=== PATIENT | female | born 1975 | race Caucasian/White ===

== ENCOUNTER 2018-07-11 10:59 | Emergency (ER) | payer BC ==
[2018-07-11 11:09] VITALS: BP 114/58; PULSE 68; TEMP 98.5; BMI 18.6
--- NOTE | 2018-07-11 11:32 | PDOC ---
History of Present Illness - General Chief Complaint: Headache Stated Complaint: HEAD INJURY Time Seen by Provider: 07/11/18 11:15 History Source: Patient Exam Limitations: No Limitations Past History - Past Medical History COPD: No - Suicide/Smoking/Psychosocial Hx Smoking History: Never smoked Hx Alcohol Use: No Drug/Substance Use Hx: No *Physical Exam - Vital Signs Last Vital Signs Temp Pulse Resp BP Pulse Ox 98.5 F 68 20 114/58 L 99 07/11/18 11:06 07/11/18 11:06 07/11/18 11:06 07/11/18 11:06 07/11/18 11:06 - Physical Exam General Appearance: No: Apparent Distress HEENT: positive: TOMAS, Other (No evidence of head trauma) Neck: positive: Supple, Tender midline. negative: Rigid, Rigidity, Tender lateral Respiratory/Chest: positive: Lungs Clear, Normal Breath Sounds. negative: Respiratory Distress Cardiovascular: positive: Regular Rhythm, Regular Rate, S1, S2. negative: Murmur Gastrointestinal/Abdominal: positive: Normal Bowel Sounds, Soft. 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 negative: Facial Droop, Confused, Disoriented Moderate Sedation - Procedure Monitoring Vital Signs: Procedure Monitoring Vital Signs Temperature 98.5 F 07/11/18 11:06 Pulse Rate 68 07/11/18 11:06 Respiratory Rate 20 07/11/18 11:06 Blood Pressure 114/58 L 07/11/18 11:06 O2 Sat by Pulse Oximetry (%) 99 07/11/18 11:06 Medical Decision Making - Medical Decision Making 42 y/o F with no sig pmh presents with generalized dull FOUNTAIN since head strike 2 days ago. Mentions she slipped on black ice, hitting back of head. Denies LOC. Took 2 Motrin's 2 days ago which helped with pain, but looked online where it said you should not take Motrin after head injury, so did not take it again. Had 1 episode of emesis 2 days ago, but no further episodes of emesis. FOUNTAIN has improved since Saturday. Denies numbness/tingling/weakness of extremities, visual/gait/speech changes. Patient is not on any blood thinners PE unremarkable with no evidence of head trauma [place] head CT: 0 points No need for CT Advised to take Motrin/Tylenol as needed. Patient does not want any pain medications right now. 07/11/18 11:28 *DC/Admit/Observation/Transfer Diagnosis at time of Disposition: Headache Qualifiers: Headache type: post-traumatic Headache chronicity pattern: acute headache Intractability: not intractable Qualified Code(s): G44.319 - Acute post- traumatic headache, not intractable - Discharge Dispostion Disposition: HOME Condition at time of disposition: Good Decision to Admit order: No - Referrals - Patient Instructions Printed Discharge Instructions: DI for Post-traumatic Headache Additional Instructions: Thank you for choosing [facility]. It was a pleasure taking care of you. You may take Tylenol 650 mg or Motrin 600 mg every 4 hours by mouth as needed for mild to moderate pain. Take Motrin with food. Do not take more than 4000 mg of Tylenol in 1 day. Recommend rest. Follow-up with your primary care doctor. Return to the Emergency Department if your symptoms worsen or persist, you have fever, vomiting, dizziness, weakness of extremities (arms and/or legs), changes in vision or walking, seizures or other concerning symptoms. - Post Discharge Activity
== END 2018-07-11 11:52 | disposition home or self-care (01) ==
LOC: JERFT 10:59
DX: G44.319 Acute post-traumatic headache, not intractable (principal); W00.2XXA Other fall from one level to another due to ice and snow, initial encounter; Y93.89 Activity, other specified; Y92.89 Other specified places as the place of occurrence of the external cause; Y99.8 Other external cause status
CPT/HCPCS: 99281-25

== ENCOUNTER 2018-07-13 13:43 | Emergency (ER) | payer BC ==
[2018-07-13 14:10] VITALS: BP 124/79; PULSE 79; TEMP 98.2; BMI 18.6
[2018-07-13] MEDS ORDERED: KETOROLAC TROMETHAMINE 60 MG/2 ML VIAL IM ONE (15:10)
[2018-07-13] MEDS ORDERED: KETOROLAC TROMETHAMINE 60 MG/2 ML VIAL ONE (15:13)
--- NOTE | 2018-07-13 15:17 | PDOC ---
History of Present Illness - General Chief Complaint: Injury Stated Complaint: HEAD INJURY Time Seen by Provider: 07/13/18 15:07 History Source: Patient Exam Limitations: No Limitations - History of Present Illness Initial Comments: 07/13/18 15:12 Patient status post slip and fall on black ice 4 days ago, states feet went out from underneath her fell onto her back and slammed her head on pavement. There was no LOC although felt dazed at the time. witnessed this fall, states took her a few minutes to gather herself to and able to sit up and stand. And since that time has had headache pain. Was seen here 2 days ago evaluated and discharged with instructions to rest and use ibuprofen for pain relief. Patient states since that time has not had any relief and in fact has been dizzy, nausea with some 2 episodes of vomiting, feels mental status is not quite the same and is tearful with discomfort Occurred: reports: last week Severity: reports: moderate Pain Location: reports: head, neck Method of Injury: Yes: direct blow, fall Modifying Factors: improves with: cold therapy, pain medication Loss of Consciousness: dazed Associated Symptoms (Fall): dizziness, headache, muscle spasms, nausea/vomiting , neck pain Past History - Travel Traveled outside of the country in the last 30 days: No Close contact w/someone who was outside of country & ill: No - Past Medical History Allergies/Adverse Reactions: Allergies Allergy/AdvReac Type Severity Reaction Status Date / Time No Known Allergies Allergy Verified 07/13/18 14:07 Home Medications: Ambulatory Orders Ondansetron [Zofran *Odt*] 4 mg SL PRN PRN #14 od.tablet 07/13/18 COPD: No - Immunization History Immunization Up to Date: Yes - Suicide/Smoking/Psychosocial Hx Smoking History: Never smoked Hx Alcohol Use: No Drug/Substance Use Hx: No Review of Systems - Review of Systems Able to Perform ROS?: Yes Is the patient limited Thai proficient: Yes Constitutional: Yes: Symptoms Reported, See HPI, Malaise. No: Fever HEENTM: Yes: Symptoms Reported Respiratory: Yes: Symptoms reported, See HPI Musculoskeletal: Yes: Symptoms Reported Neurological: Yes: Symptoms reported, See HPI, Headache All Other Systems: Reviewed and Negative *Physical Exam - Vital Signs Last Vital Signs Temp Pulse Resp BP Pulse Ox 98.2 F 79 18 124/79 100 07/13/18 14:07 07/13/18 14:07 07/13/18 14:07 07/13/18 14:07 07/13/18 14:07 - Physical Exam General Appearance: Yes: Nourished, Appropriately Dressed, Apparent Distress, Moderate Distress (is tearful with pain from neck and head) HEENT: positive: TOMAS, Normal ENT Inspection, TMs Normal (no hemotympanum, no drainage from nose or ears, no evidence of skull fracture although patient has a tender contusion to occiput at site of impact 4 days ago. No crepitus or step- offs), Other (contusion to occiput approximately 3 cm, without crepitus or step -off. No depression, no obvious sign of fracture). negative: Nasal Congestion, Rhinorrhea, TM Erythema Neck: positive: Tender, Supple, Tender lateral, Other (tappable spasm and tenderness along the sternocleidomastoid muscles, no true C-spine tenderness crepitus or step-offs. Range of motion is intact although movement causes worsened head pain and nausea.). negative: Tender midline Respiratory/Chest: positive: Lungs Clear Gastrointestinal/Abdominal: positive: Soft. negative: Tender Musculoskeletal: positive: Normal Inspection, Muscle Spasm (tight tender spasm on paravertebral spinous muscles primarily on the right side. No true paravertebral spinous tenderness crepitus or step-offs. Range of motion is limited secondary to mild spasm and headache pain). 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 NML intact, Fully Oriented, Normal Mood/Affect (tearful, quiet, poor eye contact), Normal Response Moderate Sedation - Procedure Monitoring Vital Signs: Procedure Monitoring Vital Signs Temperature 98.2 F 07/13/18 14:07 Pulse Rate 79 07/13/18 14:07 Respiratory Rate 18 07/13/18 14:07 Blood Pressure 124/79 07/13/18 14:07 O2 Sat by Pulse Oximetry (%) 100 07/13/18 14:07 ED Treatment Course - RADIOLOGY Radiology Studies Ordered: Category Date Time Status HEAD CT WITHOUT CONTRAST [CT] Stat CT Scan 07/13/18 15:10 Ordered Progress Note - Progress Note Progress Note: CAT scan negative for fractures, intracranial pathology or bleed. Cervical spine cleared for fractures or pathology. We will discharge with postconcussive syndrome and instructions for activity tolerance and increase. Given prescription for Zofran and encouraged to rest until symptoms resolve *DC/Admit/Observation/Transfer Diagnosis at time of Disposition: Post concussion syndrome - Discharge Dispostion Disposition: HOME Condition at time of disposition: Stable Decision to Admit order: No - Referrals - Patient Instructions Printed Discharge Instructions: DI for Postconcussion Syndrome Additional Instructions: Rest, avoid strenuous activity or exercise for the next 24-48 hours May use ice on contusions as needed. May use Tylenol or Motrin for pain relief May use Zofran as needed for nausea Watch and seek evaluation for changes in behavior including crankiness, inconsolability, quietness/ sleepiness that is inappropriate, tiredness that is inappropriate, watch for worsening and changes of behavior. Seek immediate evaluation/return to emergency department for vomiting, mental status changes, pain that's out of proportion , bloody drainage from ears or nose. Initiates activity as tolerated and gradually increase exercise. It is uncertain as to how long the concussive syndrome will last but until tolerating any activity will need to limit any excessive sports. Followup with private physician as needed in one to 2 days for reevaluation - Post Discharge Activity Forms/Work/School Notes: Back to Work
== END 2018-07-13 18:42 | disposition home or self-care (01) ==
LOC: JERFT 13:43
DX: F07.81 Postconcussional syndrome (principal); G44.309 Post-traumatic headache, unspecified, not intractable; W00.2XXD Other fall from one level to another due to ice and snow, subsequent encounter
CPT/HCPCS: 70450-TC; 72125-TC; 84703; 99281-25